=== PATIENT | female | born 1960 | race Caucasian/White ===

== ENCOUNTER 2021-11-05 22:23 | Observation (INO) | payer OTHER, SELFPAY ==
[2021-11-05 22:24] VITALS: BP 133/69; PULSE 90; RESP 17; RESP 22; TEMP 36.8; O2SAT 97; BMI 26.2
[2021-11-05 22:32] VITALS: O2SAT 99
--- NOTE | 2021-11-05 22:39 | EKG12_ITS ---
Test Reason : CP Blood Pressure : / mmHG Vent. Rate : 086 BPM Atrial Rate : 086 BPM P-R Int : 138 ms QRS Dur : 076 ms QT Int : 378 ms P-R-T Axes : 060 076 065 degrees QTc Int : 452 ms Normal sinus rhythm Normal ECG Confirmed by OUMOU RAMIREZ, LELIA ([id number]), copy editor JOSIE ARTHUR ([id number]) on 11/09/2021 11:22:48 AM Referred By: FELICITY Confirmed By:LELIA COELLO MD
--- NOTE | 2021-11-05 22:49 | RAD_ITS ---
INDICATION: chest pain EXAMINATION/TECHNIQUE: X-RAY - XR Chest 1 View COMPARISON: 03/26/2013. FINDINGS: The lungs are clear. The cardiomediastinal silhouette is unremarkable. No pleural effusion or pneumothorax. No acute osseous abnormalities. RAD/Chest 1 View (Portable) IMPRESSION: No acute radiographic abnormalities. Electronically Signed: Joseph Pike MD at 23:31 EDT ,
[2021-11-05 22:53] LABS: Absolute Lymphocyte Count 0.36 X10^3/uL (0.83-4.51); Absolute Neutrophil Count 6.4 X10^3/uL (2.0-7.7); Basophil# 0.02 X10^3/uL; Basophil% 0.3 % (0-1); Eosinophil# 0.05 X10^3/uL; Eosinophils% 0.7 % (0-5); Hemoglobin 13.5 g/dL (12.0-15.0); Lymphocyte # 0.36 X10^3/ul (0.83-4.51); Mean Corp Hgb Conc 31.4 g/dL (32-36); Mean Corpuscular Hgb 27.4 pg (27.0-32.0); Mean Corpuscular Volume 87.4 fL (81-99); Mean Platelet Vol. 9.2 fl (6.2-12.0); Monocyte# 0.36 X10^3/uL; NRBC Flagged by Analyzer 0 % (0-5); Neutrophil # 6.35 X10^3/uL (2.7-7.7); Neutrophil % 88.7 % (47-70); POSITIVE DIFFERENTIAL YES; Platelet Count 233 K/mm3 (150-450); RBC Distribution Width CV 13.1 % (11.6-14.6); RBC Distribution Width SD 41.6 fl (35.1-43.9); Red Blood Count 4.92 M/mm3 (4.2-5.4); White Blood Count 7.2 K/mm3 (4.4-11.0)
[2021-11-05 23:02] LABS: Differential Indicated SCAN CRITERIA MET
[2021-11-05 23:03] LABS: International Normalized Ratio 1.1; Prothrombin Time (Protime)PT. 13.1 SECONDS (11.7-14.9)
[2021-11-05] MEDS: Aspirin 81 MG TAB.CHEW 324 MG PO (23:03)
[2021-11-05 23:04] LABS: Partial Thromboplast Time 25.9 Seconds (24.1-36.2)
[2021-11-05] MEDS: Mag Hydrox/Al Hydrox/Simeth 30 ML UDC PO (23:06)
[2021-11-05] MEDS: 0.9% Normal Saline 1,000 ML 1000 ML IV (23:06)
[2021-11-05 23:15] LABS: ALB/GLOB Ratio 1.1 RATIO (0.9-2.4); AST(SGOT) 43 U/L (15-37); Alanine Aminotransfer ALT/SGPT 32 U/L (13-56); Albumin, Serum 3.6 g/dL (3.2-5.0); Alkaline Phosphatase 85 U/L (45-117); Anion Gap 4 (5-15); BUN 14 mg/dL (7-18); BUN/Creat Ratio 16.3 RATIO (10-20); Calcium,Total 8.9 mg/dL (8.5-10.1); Chloride 110 mmol/L (98-107); Creatinine, Serum 0.86 mg/dL (0.55-1.02); EST Glomerular Filtration Rate 71 mL/min (>60); Est Glom Filt Rate - Afr Amer 86 mL/min (>60); Estimated Creatinine Clearance 64.57 ml/min; Globulin 3.4 g/dL (2.2-4.2); Glucose 126 mg/dL (74-106); Lipase 114 U/L (73-393); Potassium 4.1 mmol/L (3.5-5.1); Sodium Level 141 mmol/L (136-145)
[2021-11-05] MEDS: Ondansetron 4 MG/2 ML Vial IV (23:15)
[2021-11-05 23:22] LABS: Differential Comment SCANNED
--- NOTE | 2021-11-05 23:39 | HP.PCM.HOS_ITS ---
HPI - General General Date of Service: 11/05/21 Chief Complaint: Near syncope, N/V/D, bradycardia. HPI Narrative The patient is a 61 y/o F w/ PMHx: Hx COVID-19 illness, GERD who presents to the [facility] ED on 11/05/21 with history of going out for the evening and having dinner with her son at approximately 530 to 6 PM downtown in [place] with eventual development at approximately 930 to 10 PM upset stomach without abdominal cramping or pain and severe nausea with onset of watery profuse diarrhea with no syncopal sensation and at that time diaphoresis, dizziness as well as significant lightheadedness with EMS evaluation and upon their arrival notable bradycardia with heart rate in the 30s with atropine administered with patient reporting and a repeat similar sensation while in the ambulance on route but no diarrhea at that time. Upon arrival patient feels fatigued and notes that she feels very cold. She notes that her son has felt well and has had no issues. They did share some of her dishes but not all of them. She does report recently being in [place] but she has no contacts from her trip who are also ill work-up in the ED included T 98.2, heart rate 90, BP 133/69, respiratory rate 17, 97% room air, CBC with WC 7.2, hemoglobin 13.5, platelet 233 with lymphopenia, unremarkable coags, CMP with glucose 126, AST/ALT 43/32, lipase 114, troponin less than 3, mag 2.0, EKG SR without acute evidence of acute ischemia, chest xray with no acute cardiopulmonary findings. In the ED patient ministered normal saline, Zofran, GI cocktail, aspirin 324 mg p.o. x1. [facility] Medical History (Updated 11/06/21 @ 00:[address] Jennifer Zarco MD) COVID-19 GERD (gastroesophageal reflux disease) Home Medications esomeprazole magnesium [Nexium] 40 mg PO DAILY 11/05/21 [History Last Taken Unknown] Allergy/AdvReac Type Severity Reaction Status Date / Time Penicillins Allergy Swelling Verified 11/05/21 22:29 Sulfa (Sulfonamide Allergy Swelling Verified 11/05/21 22:29 Antibiotics) Family History (Updated 11/06/21 @ 00:[address] Jennifer Zarco MD) Mother COPD (chronic obstructive pulmonary disease) Father COPD (chronic obstructive pulmonary disease) Heart disease Myocardial infarction Hypertension Brother Heart disease Myocardial infarction Hypertension Surgical History (Updated 11/06/21 @ 00:[address] Jennifer Zarco MD) H/O section History of shoulder surgery S/P cholecystectomy S/P partial hysterectomy Social History (Updated 11/06/21 @ 00:[address] Jennifer Zarco MD) household members: spouse Smoking Status: Never smoker Smokeless tobacco user: other alcohol intake: current alcohol intake frequency: holidays/special occasions only substance use type: does not use ROS ROS Narrative Admission Review of Systems: CONSTITUTIONAL: No weight loss, fever, + chills, weakness or fatigue. HEENT: Eyes: No visual loss, blurred vision, double vision or yellow sclerae. Ears, Nose, Throat: No hearing loss, sneezing, congestion, runny nose or sore throat. SKIN: No rash or itching, lesions, wounds. CARDIOVASCULAR: + Near syncopal event, bradycardia, no chest pain, chest pressure or chest discomfort, palpitations, edema, orthopnea, syncopal events. RESPIRATORY: No shortness of breath, cough or sputum, wheezing, hemoptysis. GASTROINTESTINAL: + Anorexia, nausea without vomiting, profuse diarrhea, No abdominal pain, melena, BRBPR. GENITOURINARY: No dysuria, frequency, urgency or retention. NEUROLOGICAL: + Near syncope, No headache, paralysis, ataxia, numbness or tingling in the extremities, focal weakness, change in bowel or bladder control, seizure. MUSCULOSKELETAL: No muscle, back pain, joint pain or stiffness. HEMATOLOGIC: No anemia, bleeding or bruising. LYMPHATICS: No enlarged nodes. No history of splenectomy. PSYCHIATRIC: No history of depression or anxiety. ENDOCRINOLOGIC: No reports of sweating, cold or heat intolerance. No polyuria or polydipsia. ALLERGIES: + potential rhinitis. Vital Signs Vital Signs Vital Signs: 11/05/21 22:24 11/05/21 22:32 11/05/21 23:00 Temperature 98.2 F Temperature Source Temporal Pulse Rate 90 Respiratory Rate 17 Respiratory Effort Short of Breath Blood Pressure 133/69 H Blood Pressure Mean 90 Pulse Ox 97 Oxygen Delivery Method Room Air Room Air Room Air Weight Weight: 129 lb 10.109 oz Body Mass Index (BMI) 26.2 Physical Exam Narrative Physical Examination: General: Awake, alert, oriented x 3 and cooperative, seated upright in the ED bed, fatigued appearing, shivering. Skin: Normal color, normal turgor, no icterus, no cyanosis. HEENT: AT/NC, EOMI, PERRLA, mildly dry MM, no carotid bruits or JVD noted. Lungs: CTA bilaterally, moderate effort, mild decrease BL bases, no rales, ronchi or wheezing. Heart: Currently regular rate and rhythm; no gallop, rub audible. Abdomen: Soft, NTTP, ND, hyperactive BS, no HSM. Extremities: No cyanosis, clubbing, or edema. Neurological: Patient awake, alert, oriented as noted, cognitive function intact; pupils equally reactive to light and accommodation, cranial nerves II- XII grossly normal, moving all 4 extremities, no focal deficits, strength mildly global decreased secondary to recent events Psychiatric: Affect appears fatigued, mildly anxious otherwise normal, no acute evidence of depressive feelings. Results Lab / Micro Data Result Diagrams: 11/05/21 22:45 11/05/21 22:45 Labs: Laboratory Results - last 24 hr 11/05/21 22:45: WBC 7.2, RBC 4.92, Hgb 13.5, Hct 43.0, MCV 87.4, MCH 27.4, MCHC 31.4 L, RDW Std Deviation 41.6, RDW Coeff of Crista 13.1, Plt Count 233, MPV 9.2, Immature Gran % (Auto) 0.300, Neut % (Auto) 88.7 H, Lymph % (Auto) 5.0 L, [place] % (Auto) 5.0, Eos % (Auto) 0.7, Baso % (Auto) 0.3, Absolute Neuts (auto) 6.4, Absolute Lymphs (auto) 0.36 L, Nucleated RBC % 0, Differential Comment SCANNED 11/05/21 22:45: Sodium 141, Potassium 4.1, Chloride 110 H, Carbon Dioxide 27.0, Anion Gap 4 L, BUN 14, Creatinine 0.86, Estim Creat Clear Calc 64.57, Est GFR (MDRD) Af Amer 86, Est GFR (MDRD) Non-Af 71, BUN/Creatinine Ratio 16.3, Glucose 126 H, Calcium 8.9, Magnesium 2.0, Total Bilirubin 0.40, AST 43 H, ALT 32, Alkaline Phosphatase 85, Total Protein 7.0, Albumin 3.6, Globulin 3.4, Albumin/Globulin Ratio 1.1, Lipase 114 11/05/21 22:45: PT 13.1, INR 1.1, APTT 25.9 Radiology Impression Chest X-Ray 11/05/21 22:49 IMPRESSION: No acute radiographic abnormalities. Electronically Signed: Joseph Pike MD at 23:31 EDT , Assessment & Plan Assessment/Plan (1) Bradycardia: (2) Gastroenteritis: (3) Near syncope: PLAN: The patient is a 61 y/o F w/ PMHx: Hx COVID-19 illness, GERD who presents to the [facility] ED on 11/05/21 with history of going out for the evening with eventual development at approximately 930 to 10 PM upset stomach without abdominal cramping or pain and severe nausea with onset of watery profuse diarrhea with no syncopal sensation with EMS evaluation w/ HR 30-40s with atropine administered. #1. Near Syncopal Event suspected secondary to potentially acute gastroenteritis with associated bradycardia potentially vasovagal associated: EKG in ED w/ sinus rhythm without evidence of acute ischemia, CXR w/ no acute cardiopulmonary findings, initial trop less than 3. Will admit to PCU, place on a monitored bed to assure no acute myocardial infarction with serial cardiac enzymes and EKGs. Will maintain on fall precautions, obtain admission orthostatic and AM orthostatic VS and increase hydration if appropriate. Will obtain ECHO. If any recurrent loose stools will send for culture and C. difficile. Respiratory viral panel requested. #2. GERD: We will continue patient on PPI. #3. DVT prophylaxis: SCDs, Lovenox. Charges/Coding Visit Charges OBSV E&M: 28784 Initial observation care L3
[2021-11-05 23:40] VITALS: BP 129/68; PULSE 97; RESP 17; TEMP 37.1; O2SAT 98
--- NOTE | 2021-11-05 23:40 | EDS_ITS ---
HPI History of Present Illness Chief Complaint: Shortness of Breath Informant: patient Onset/Context/Timing Onset: Today Quality: Feels funny Location: Epigastric pain Worsened by: Unsure Relieved by: Unsure Associated Symptoms Associated Symptoms: Sweats, pallor, near syncope, low heart rate for EMS, diarrhea Narrative Narrative: Patient arrives by EMS. She was having some epigastric pain earlier today and at the time she was having diarrhea, she was pale, sweaty, and felt like she was going to pass out. EMS was called. She had a similar episode in the ambulance. They found her heart rate to be low, 38 and she was treated with atropine. Her heart rate has since improved but she still feels funny and slightly short of breath. She denies any cardiac history. Any history of bradycardia. She is not on beta-blockers or anything for rate control. She has some epigastric pain but no chest pain. No history of DVT or PE. No fevers. No bleeding. [facility] Medical History Allergic rhinitis GERD (gastroesophageal reflux disease) Home Medications esomeprazole magnesium [Nexium] 40 mg PO DAILY 11/05/21 [History Last Taken Unknown] Allergy/AdvReac Type Severity Reaction Status Date / Time Penicillins Allergy Swelling Verified 11/05/21 22:29 Sulfa (Sulfonamide Allergy Swelling Verified 11/05/21 22:29 Antibiotics) Surgical History (Updated 11/05/21 @ 23:[address] Jennifer Zarco MD) H/O section History of shoulder surgery S/P cholecystectomy Social History (Updated 11/05/21 @ 23:[address] Jennifer Zarco MD) household members: spouse Smoking Status: Never smoker alcohol intake: never substance use type: does not use ROS ROS ED Constitutional Constitutional ED: Reports sweats; Denies fever(s) Eyes Eyes: Denies change in vision ENT ENT ED: Denies ear pain Cardiovascular Cardiovascular: Denies chest pain Respiratory/Chest Respiratory/Chest: Reports dyspnea Gastrointestinal Gastrointestinal: Reports abdominal pain, diarrhea, nausea and vomiting Genitourinary Genitourinary ED: Denies dysuria Musculoskeletal Musculoskeletal: Denies myalgias Integumentary Denies rash Neurologic Neurologic: Denies headache(s) Psychiatric Psychiatric: Denies depression Endocrine Endocrinology: Denies polyuria Allergic/Immunologic Allergic/Immunologic ED: Denies urticaria EXAM Physical Exam Const Vital Signs: 11/05/21 22:24 11/05/21 22:32 11/05/21 23:00 Temperature 98.2 F Temperature Source Temporal Pulse Rate 90 Respiratory Rate 17 Respiratory Effort Short of Breath Blood Pressure 133/69 H Blood Pressure Mean 90 Pulse Ox 97 Oxygen Delivery Method Room Air Room Air Room Air Positive well nourished and well developed General Appearance ED: well developed HEENT Negative for trauma Eyes EOMs intact bilaterally Neck supple Chest Wall inspection of chest normal Resp normal respiratory effort and clear to auscultation bilaterally Cardio regular rate and regular rhythm GI normal to inspection, nondistended, normoactive bowel sounds, non-tender and non-distended Palpation: soft Extremity normal to inspection General Extremety ED: Negative for edema or tenderness General Extremity: Negative for edema Neuro oriented x3 Sensorium / Orientation: alert Psych mental status grossly normal Skin no rashes or lesions noted MDM MDM MDM Narrative Medical decision making narrative: EKG shows sinus rhythm at a rate of 86. No sign of ischemia or infarction pattern. Normal intervals. This was interpreted by me. Patient was placed on the monitor. She had no further bradycardia or hypotension. She did have some continued symptoms. She was treated with Zofran. I reviewed her labs. They are fairly unremarkable. Still awaiting troponin at the time of this dictation. I suspect it will be normal. Will check. Chest x- ray was reviewed by the radiologist and myself. This showed no acute abnormalities. I agree with the interpretation. I suspect the patient had a vasovagal episode secondary to gastroenteritis or food poisoning, gastritis. She has had no further bradycardia. Her work-up so far has been reassuring. I believe she should be observed for near syncope and her symptoms. I contacted the hospitalist. Disposition is observation in PCU Impression #1 gastritis Impression #2 near syncope Impression #3 bradycardia Lab Data Attestation: I reviewed the patient's lab results. Labs: Laboratory Results - last 24 hr 11/05/21 11/05/21 11/05/21 22:45 22:45 22:45 WBC 7.2 RBC 4.92 Hgb 13.5 Hct 43.0 MCV 87.4 MCH 27.4 MCHC 31.4 L RDW Std Deviation 41.6 RDW Coeff of Crista 13.1 Plt Count 233 MPV 9.2 Immature Gran % (Auto) 0.300 Neut % (Auto) 88.7 H Lymph % (Auto) 5.0 L [place] % (Auto) 5.0 Eos % (Auto) 0.7 Baso % (Auto) 0.3 Absolute Neuts (auto) 6.4 Absolute Lymphs (auto) 0.36 L Nucleated RBC % 0 Differential Comment SCANNED PT 13.1 INR 1.1 APTT 25.9 Sodium 141 Potassium 4.1 Chloride 110 H Carbon Dioxide 27.0 Anion Gap 4 L BUN 14 Creatinine 0.86 Estim Creat Clear Calc 64.57 Est GFR (MDRD) Af Amer 86 Est GFR (MDRD) Non-Af 71 BUN/Creatinine Ratio 16.3 Glucose 126 H Calcium 8.9 Magnesium 2.0 Total Bilirubin 0.40 AST 43 H ALT 32 Alkaline Phosphatase 85 Total Protein 7.0 Albumin 3.6 Globulin 3.4 Albumin/Globulin Ratio 1.1 Lipase 114 Radiography Chest X-Ray - ED: Read by ED Physician and Read by Radiologist Diagnostic Testing: Clinical Impression(s) from Imaging Studies Chest X-Ray 11/05/21 22:49 IMPRESSION: No acute radiographic abnormalities. Electronically Signed: Joseph Pike MD at 23:31 EDT , Discharge Plan Triage Chief Complaint: Shortness of Breath ED Provider: Chino Torres Dx/Rx/DC Orders Prescriptions: No Action esomeprazole magnesium [Nexium] 40 mg Capsule,Delayed Release(Dr/Ec) 40 mg PO DAILY RF: 0 Primary Care Provider: Bhavesh De La Rosa
[2021-11-05 23:45] LABS: Troponin-I HS (w/2H Reflex) < 3 pg/mL (3.0-54.0)
[2021-11-06] VITALS (12 sets, daily range): BP systolic 108–141; BP diastolic 39–63; PULSE 83–104; RESP 16–18; TEMP 37–38.7; O2SAT 93–100; BMI 25.1
[2021-11-06 00:45] LABS: Procalcitonin < 0.04 ng/mL (0.00-0.09)
[2021-11-06 01:11] LABS: Reflex Troponin-HS? (from REC) Y
[2021-11-06] MEDS: 0.9% Normal Saline 1,000 ML 100 ML IV ×2 (01:20→09:35)
[2021-11-06] MEDS: 0.9% Saline Lock 10 ML Syringe IV ×2 (01:20→11:18)
[2021-11-06 01:48] LABS: Troponin-I HS < 3 pg/mL (3.0-54.0)
--- NOTE | 2021-11-06 05:55 | EKG12_ITS ---
Test Reason : AM EKG Blood Pressure : / mmHG Vent. Rate : 094 BPM Atrial Rate : 094 BPM P-R Int : 142 ms QRS Dur : 072 ms QT Int : 358 ms P-R-T Axes : 068 075 074 degrees QTc Int : 447 ms Normal sinus rhythm Normal ECG When compared with ECG of 09-APR-2008 07:39, MANUAL COMPARISON REQUIRED, DATA IS UNCONFIRMED Confirmed by EDELMIRA RAMIREZ, GENI ([id number]), metropolitan editor ETHAN CONNER ([id number]) on 11/11/2021 1:12:32 PM Referred By: Confirmed By:SHARI HICKEY MD
[2021-11-06] MEDS: Acetaminophen 325 MG Tablet 650 MG PO ×3 (05:56→20:17)
[2021-11-06] MEDS: Ondansetron 4 MG/2 ML Vial IV ×2 (05:58→20:16)
[2021-11-06 06:00] LABS: Absolute Lymphocyte Count 0.17 X10^3/uL (0.83-4.51); Absolute Neutrophil Count 7.7 X10^3/uL (2.0-7.7); Basophil# 0.02 X10^3/uL; Basophil% 0.2 % (0-1); Eosinophil# 0.02 X10^3/uL; Eosinophils% 0.2 % (0-5); Hematocrit 38.8 % (37-47); Hemoglobin 12.3 g/dL (12.0-15.0); Lymphocyte # 0.17 X10^3/ul (0.83-4.51); Lymphocyte % 2.1 % (19-41); Mean Corp Hgb Conc 31.7 g/dL (32-36); Mean Corpuscular Hgb 27.4 pg (27.0-32.0); Mean Corpuscular Volume 86.4 fL (81-99); Mean Platelet Vol. 9.3 fl (6.2-12.0); Monocyte# 0.22 X10^3/uL; Monocyte% 2.7 % (0-10); NRBC Flagged by Analyzer 0 % (0-5); Neutrophil # 7.74 X10^3/uL (2.7-7.7); Neutrophil % 94.6 % (47-70); POSITIVE DIFFERENTIAL YES; Platelet Count 227 K/mm3 (150-450); RBC Distribution Width CV 13.2 % (11.6-14.6); RBC Distribution Width SD 41.3 fl (35.1-43.9); Red Blood Count 4.49 M/mm3 (4.2-5.4); White Blood Count 8.2 K/mm3 (4.4-11.0)
[2021-11-06 06:10] LABS: Differential Indicated SCAN CRITERIA MET
[2021-11-06 06:25] LABS: AST(SGOT) 22 U/L (15-37); Alanine Aminotransfer ALT/SGPT 28 U/L (13-56); Albumin, Serum 3.1 g/dL (3.2-5.0); Alkaline Phosphatase 73 U/L (45-117); BUN 15 mg/dL (7-18); BUN/Creat Ratio 20.8 RATIO (10-20); Calcium,Total 7.7 mg/dL (8.5-10.1); Creatinine, Serum 0.72 mg/dL (0.55-1.02); EST Glomerular Filtration Rate 88 mL/min (>60); Est Glom Filt Rate - Afr Amer 106 mL/min (>60); Estimated Creatinine Clearance 74.11 ml/min; Glucose 111 mg/dL (74-106); Protein, Total 6.1 g/dL (6.4-8.2); Troponin-I HS 4 pg/mL (3.0-54.0)
[2021-11-06 06:26] LABS: Anion Gap 6 (5-15); Chloride 114 mmol/L (98-107); Potassium 3.9 mmol/L (3.5-5.1); Sodium Level 143 mmol/L (136-145)
[2021-11-06] MEDS: Mag Hydrox/Al Hydrox/Simeth 30 ML UDC PO (06:41)
[2021-11-06 06:42] LABS: Differential Comment SCANNED
[2021-11-06] MEDS: Pantoprazole Sodium 40 MG Tablet PO (09:16)
[2021-11-06] MEDS: Enoxaparin 40 MG/0.4 ML Syringe SC (09:16)
[2021-11-06] MEDS: Aspirin 81 MG TAB.CHEW PO (09:16)
[2021-11-06] MEDS: proCHLORPERazine 10 MG/2 ML Vial 5 MG IV (11:15)
--- NOTE | 2021-11-06 13:51 | CON.PCM.CA_ITS ---
Assessment & Plan Assessment/Plan (1) Gastroenteritis: (2) Near syncope: (3) Bradycardia: PLAN: 61-year-old female who had a past medical history of COVID-19 illness Also had a gastric reflux disease Patient seen and evaluated in the ER yesterday when she had episode of abdominal cramping and pain with severe nausea and had profuse watery diarrhea EMS was called and noted that her heart rate was as low requiring atropine with a range of heart rate 30 -40 bpm. This morning she is stable clinically she does not have any symptoms of dizziness or lightheadedness she still continued to have diarrhea. 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 Near syncopal episode likely related to episode of diarrhea abdominal pain with vasovagal episode 2. I reviewed the electronic device monitor she remains in sinus rhythm no evidence of high degree AV block. 3. From cardiac standpoint if she remains stable she can be discharged to follow-up with her primary electric truck crane operator HPI Consult Data Date of Consult: 11/06/21 HPI Narrative Reason for Consultation: Near syncopal event HPI Narrative: BLAYNE FOWLER, is a 61 F who presents [facility] Medical History (Updated 11/06/21 @ 00:[address] Jennifer Zarco MD) COVID-19 GERD (gastroesophageal reflux disease) Home Medications esomeprazole magnesium [Nexium] 20 mg PO DAILY 11/05/21 [History Last Taken 04/20] Allergy/AdvReac Type Severity Reaction Status Date / Time Penicillins Allergy Swelling Verified 11/05/21 22:29 Sulfa (Sulfonamide Allergy Swelling Verified 11/05/21 22:29 Antibiotics) Family History (Updated 11/06/21 @ 00:[address] Jennifer Zarco MD) Mother COPD (chronic obstructive pulmonary disease) Father COPD (chronic obstructive pulmonary disease) Heart disease Myocardial infarction Hypertension Brother Heart disease Myocardial infarction Hypertension Surgical History (Updated 11/06/21 @ 00:[address] Jennifer Zarco MD) H/O section History of shoulder surgery S/P cholecystectomy S/P partial hysterectomy Social History (Updated 11/06/21 @ 00:[address] Jennifer Zarco MD) household members: spouse Smoking Status: Never smoker Smokeless tobacco user: other alcohol intake: current alcohol intake frequency: holidays/special occasions only substance use type: does not use Physical Exam Narrative Patient seen and evaluated at bedside at bedside at time of evaluation Alert orientated x3 Not in acute distress Cardiovascular examination electronic device monitor showed normal sinus rhythm S1-S2 regular, no systolic or diastolic murmur, no pericardial rub Chest examination clear to auscultation bilateral. Risk Stratification Risk Stratification Applicable: No Objective Data Vital Signs: Vital Signs Temp Pulse Resp BP Pulse Ox 99.9 F H 98 18 108/39 L 94 11/06/21 09:04 11/06/21 09:04 11/06/21 09:04 11/06/21 09:04 11/06/21 09:04 Oxygen Delivery Method Room Air Weight: 124 lb 8.979 oz Body Mass Index (BMI) 25.1 Intake & Output: Intake and Output for Last 24 Hours 11/04/21 11/05/21 11/06/21 23:59 23:59 23:59 Intake Total 2365 / 2365 Output Total 500 / 500 Balance 1865 / 1865 Lab / Micro Data Result Diagrams: 11/06/21 05:10 11/06/21 05:10 Labs: Laboratory Results - last 24 hr 11/05/21 22:45: WBC 7.2, RBC 4.92, Hgb 13.5, Hct 43.0, MCV 87.4, MCH 27.4, MCHC 31.4 L, RDW Std Deviation 41.6, RDW Coeff of Crista 13.1, Plt Count 233, MPV 9.2, Immature Gran % (Auto) 0.300, Neut % (Auto) 88.7 H, Lymph % (Auto) 5.0 L, [place] % (Auto) 5.0, Eos % (Auto) 0.7, Baso % (Auto) 0.3, Absolute Neuts (auto) 6.4, Absolute Lymphs (auto) 0.36 L, Nucleated RBC % 0, Differential Comment SCANNED 11/05/21 22:45: Sodium 141, Potassium 4.1, Chloride 110 H, Carbon Dioxide 27.0, Anion Gap 4 L, BUN 14, Creatinine 0.86, Estim Creat Clear Calc 64.57, Est GFR (MDRD) Af Amer 86, Est GFR (MDRD) Non-Af 71, BUN/Creatinine Ratio 16.3, Glucose 126 H, Calcium 8.9, Magnesium 2.0, Total Bilirubin 0.40, AST 43 H, ALT 32, Alkaline Phosphatase 85, Total Protein 7.0, Albumin 3.6, Globulin 3.4, Albumin/Globulin Ratio 1.1, Lipase 114 11/05/21 22:45: PT 13.1, INR 1.1, APTT 25.9 11/05/21 22:45: Troponin I High Sens < 3 L 11/05/21 23:45: Procalcitonin < 0.04 11/06/21 01:15: Troponin I High Sens < 3 L 11/06/21 05:10: WBC 8.2, RBC 4.49, Hgb 12.3, Hct 38.8, MCV 86.4, MCH 27.4, MCHC 31.7 L, RDW Std Deviation 41.3, RDW Coeff of Crista 13.2, Plt Count 227, MPV 9.3, Immature Gran % (Auto) 0.200, Neut % (Auto) 94.6 H, Lymph % (Auto) 2.1 L, [place] % (Auto) 2.7, Eos % (Auto) 0.2, Baso % (Auto) 0.2, Absolute Neuts (auto) 7.7, Absolute Lymphs (auto) 0.17 L, Nucleated RBC % 0, Differential Comment SCANNED 11/06/21 05:10: Sodium 143, Potassium 3.9, Chloride 114 H, Carbon Dioxide 23.0, Anion Gap 6, BUN 15, Creatinine 0.72, Estim Creat Clear Calc 74.11, Est GFR (MDRD) Af Amer 106, Est GFR (MDRD) Non-Af 88, BUN/Creatinine Ratio 20.8 H, Glucose 111 H, Calcium 7.7 L, Total Bilirubin 0.40, AST 22, ALT 28, Alkaline Phosphatase 73, Troponin I High Sens 4, Total Protein 6.1 L, Albumin 3.1 L, Globulin 3.0, Albumin/Globulin Ratio 1.0 Micro: Microbiology 11/06/21 02:15 Mucosa - Nasopharyngeal Respiratory Panel (PCR) - Final Cardiology Labs/Tests 11/05/21 22:45: WBC 7.2, RBC 4.92, Hgb 13.5, Hct 43.0, MCV 87.4, MCH 27.4, MCHC 31.4 L, Plt Count 233, MPV 9.2, Immature Gran % (Auto) 0.300, Neut % (Auto) 88.7 H, Lymph % (Auto) 5.0 L, [place] % (Auto) 5.0, Eos % (Auto) 0.7, Baso % (Auto) 0.3, Absolute Neuts (auto) 6.4, Nucleated RBC % 0 11/05/21 22:45: Sodium 141, Potassium 4.1, Chloride 110 H, Carbon Dioxide 27.0, Anion Gap 4 L, BUN 14, Creatinine 0.86, Est GFR (MDRD) Af Amer 86, Est GFR (MDRD) Non-Af 71, BUN/Creatinine Ratio 16.3, Glucose 126 H, Calcium 8.9, Ma gnesium 2.0, Total Bilirubin 0.40 11/05/21 22:45: PT 13.1, INR 1.1, APTT 25.9 11/06/21 05:10: WBC 8.2, RBC 4.49, Hgb 12.3, Hct 38.8, MCV 86.4, MCH 27.4, MCHC 31.7 L, Plt Count 227, MPV 9.3, Immature Gran % (Auto) 0.200, Neut % (Auto) 94.6 H, Lymph % (Auto) 2.1 L, [place] % (Auto) 2.7, Eos % (Auto) 0.2, Baso % (Auto) 0.2, Absolute Neuts (auto) 7.7, Nucleated RBC % 0 11/06/21 05:10: Sodium 143, Potassium 3.9, Chloride 114 H, Carbon Dioxide 23.0, Anion Gap 6, BUN 15, Creatinine 0.72, Est GFR (MDRD) Af Amer 106, Est GFR (MDRD) Non-Af 88, BUN/Creatinine Ratio 20.8 H, Glucose 111 H, Calcium 7.7 L, Total Bilirubin 0.40 Rhythm: EKG: ECHO: Stress Test: Cardiac Cath: PCI: CT Surgery: Holter monitor: EPS: PPM: CXR: Chest CT Scan: Radiography Diagnostic Testing: Radiology Impression Chest X-Ray 11/05/21 22:49 IMPRESSION: No acute radiographic abnormalities. Electronically Signed: Joseph Pike MD at 23:31 EDT ,
--- NOTE | 2021-11-06 14:56 | PCM.PN.HOSP ---
Subjective Subjective Patient was seen and examined today, she is still not feeling well-she still has diarrhea and some nausea. There have been no episodes of bradycardia since she has been admitted to PCU, I do not feel she needs an echocardiogram performed, stool was positive for norovirus, I will increase the patient's IV fluids to 125 an hour, she will not be able to go home at this time until her symptoms improve. Objective Data Objective Data Vital Signs: Vital Signs Temp Pulse Resp BP Pulse Ox 101.6 F H 104 H 18 131/63 H 94 11/06/21 14:22 11/06/21 14:22 11/06/21 14:22 11/06/21 14:22 11/06/21 14:22 Oxygen Delivery Method Room Air Weight: 56.5 kg Body Mass Index (BMI) 25.1 Intake & Output: Intake and Output for Last 24 Hours 11/04/21 11/05/21 11/06/21 23:59 23:59 23:59 Intake Total 2365 / 2365 Output Total 500 / 500 Balance 1865 / 1865 Lab / Micro Data Result Diagrams: 11/06/21 05:10 11/06/21 05:10 Labs: Laboratory Results - last 24 hr 11/05/21 22:45: WBC 7.2, RBC 4.92, Hgb 13.5, Hct 43.0, MCV 87.4, MCH 27.4, MCHC 31.4 L, RDW Std Deviation 41.6, RDW Coeff of Crista 13.1, Plt Count 233, MPV 9.2, Immature Gran % (Auto) 0.300, Neut % (Auto) 88.7 H, Lymph % (Auto) 5.0 L, [place] % (Auto) 5.0, Eos % (Auto) 0.7, Baso % (Auto) 0.3, Absolute Neuts (auto) 6.4, Absolute Lymphs (auto) 0.36 L, Nucleated RBC % 0, Differential Comment SCANNED 11/05/21 22:45: Sodium 141, Potassium 4.1, Chloride 110 H, Carbon Dioxide 27.0, Anion Gap 4 L, BUN 14, Creatinine 0.86, Estim Creat Clear Calc 64.57, Est GFR (MDRD) Af Amer 86, Est GFR (MDRD) Non-Af 71, BUN/Creatinine Ratio 16.3, Glucose 126 H, Calcium 8.9, Magnesium 2.0, Total Bilirubin 0.40, AST 43 H, ALT 32, Alkaline Phosphatase 85, Total Protein 7.0, Albumin 3.6, Globulin 3.4, Albumin/Globulin Ratio 1.1, Lipase 114 11/05/21 22:45: PT 13.1, INR 1.1, APTT 25.9 11/05/21 22:45: Troponin I High Sens < 3 L 11/05/21 23:45: Procalcitonin < 0.04 11/06/21 01:15: Troponin I High Sens < 3 L 11/06/21 05:10: WBC 8.2, RBC 4.49, Hgb 12.3, Hct 38.8, MCV 86.4, MCH 27.4, MCHC 31.7 L, RDW Std Deviation 41.3, RDW Coeff of Crista 13.2, Plt Count 227, MPV 9.3, Immature Gran % (Auto) 0.200, Neut % (Auto) 94.6 H, Lymph % (Auto) 2.1 L, [place] % (Auto) 2.7, Eos % (Auto) 0.2, Baso % (Auto) 0.2, Absolute Neuts (auto) 7.7, Absolute Lymphs (auto) 0.17 L, Nucleated RBC % 0, Differential Comment SCANNED 11/06/21 05:10: Sodium 143, Potassium 3.9, Chloride 114 H, Carbon Dioxide 23.0, Anion Gap 6, BUN 15, Creatinine 0.72, Estim Creat Clear Calc 74.11, Est GFR (MDRD) Af Amer 106, Est GFR (MDRD) Non-Af 88, BUN/Creatinine Ratio 20.8 H, Glucose 111 H, Calcium 7.7 L, Total Bilirubin 0.40, AST 22, ALT 28, Alkaline Phosphatase 73, Troponin I High Sens 4, Total Protein 6.1 L, Albumin 3.1 L, Globulin 3.0, Albumin/Globulin Ratio 1.0 Micro: Microbiology 11/06/21 09:00 Stool Enteric Bacteriology - Final Norovirus 11/06/21 02:15 Mucosa - Nasopharyngeal Respiratory Panel (PCR) - Final Radiography Diagnostic Testing: Radiology Impression Chest X-Ray 11/05/21 22:49 IMPRESSION: No acute radiographic abnormalities. Electronically Signed: Joseph Pike MD at 23:31 EDT , Physical Exam Const alert, oriented x3, no apparent distress, average body habitus and healthy appearing General Appearance: cooperative, well kempt and well developed Orientation / Consciousness: awake, oriented to person, oriented to place and oriented to time HEENT normocephalic, head/scalp atraumatic and moist oral mucous membranes Head and Scalp: normocephalic Eyes PERRL, EOMs intact bilaterally and conjunctivae normal Neck nuchal rigidity, supple, no JVD, thyroid normal and no carotid bruits General: trachea midline Resp normal respiratory effort, no retractions, no use of accessory muscles and clear to auscultation bilaterally Auscultation: Negative for rales, rhonchi or wheezes Cardio regular rate, regular rhythm, S1 normal heart sound, S2 normal heart sound, no murmurs, no rub and no gallops GI normal to inspection, nondistended, normoactive bowel sounds, non-tender and non-distended Extremity no clubbing, cyanosis or edema Skin no rashes or lesions noted General Skin Exam: no breakdown Neuro oriented x3, CN's II-XII intact bilaterally, no focal motor deficits and no sensory deficits noted Sensorium / Orientation: awake and alert Speech: speech normal Psych affect normal Assessment & Plan Assessment/Plan (1) Bradycardia: PLAN: 1. Bradycardia-probably secondary to intractable diarrhea with vasovagal reaction-there have been no episodes of bradycardia since the patient has been admitted, again I do not feel the patient needs an echocardiogram at this time. #2 norovirus gastroenteritis-supportive care will be given to the patient, she is still having diarrhea. #3 GERD-patient is on Protonix Charges/Coding Visit Charges OBSV E&M: 42131 Subsequent observation care L2
[2021-11-06] MEDS: 0.9% Normal Saline 1,000 ML 125 ML IV (19:31)
[2021-11-07] VITALS (8 sets, daily range): BP systolic 119–141; BP diastolic 55–70; PULSE 77–88; RESP 16–18; TEMP 36.9–37.5; O2SAT 92–96
[2021-11-07] MEDS: 0.9% Normal Saline 1,000 ML 125 ML IV (02:38)
[2021-11-07] MEDS: Pantoprazole Sodium 40 MG Tablet PO (09:19)
--- NOTE | 2021-11-07 11:38 | PCM.DC ---
Discharge Instructions Diet Discharge Diet: No restrictions Activity Discharge Activity: Return to Normal Activity Weight Bearing Status: Full weight bearing Follow Up Care Test Results: Test results from this visit will be discussed in further detail at your follow-up appointment, if applicable. Discharge Plan Admission Admit Date/Time: 11/05/21 23:40 Primary Reason for Your Visit: gastroenteritis Attending Provider: German Richards Primary Care Provider: Bhavesh De La Rosa Consulting Providers: Colby Gorman Discharge Orders/Prescriptions Prescriptions: Continued esomeprazole magnesium [Nexium] 40 mg Capsule,Delayed Release(Dr/Ec) 20 mg PO DAILY RF: 0 Referrals / Follow Up: Bhavesh De La Rosa MD [Primary Care Provider] - See Referral Note (call the office to see when you need to be seen) Disposition Disposition (needs filled in before D/C Order can be placed): Home, Self Care
[2021-11-07] MEDS: Furosemide 40 MG Tablet PO (12:28)
--- NOTE | 2021-11-07 12:34 | NURSING ---
reviewed discharge instructions voiced understanding, discharged per wheelchair per escort in care of
--- NOTE | 2021-11-07 18:30 | PCM.DC.SUM ---
Providers Date of Admission: 11/05/21 Date of Discharge: 11/07/21 Primary Care Physician: Dr. Bhavesh De La Rosa MD Consultations 11/06/21 00:31 Consult: Cardiology Routine Consulting Provider: Colby Gorman Reason for Consult: Near syncope, bradycardia requiring atropine, suspect vasovagal w/ poss GI EMERGENT Consult: No MD Notified: Yes Date Notified: 11/06/21 Time Notified: 00:17 Method of Notification: cortext Reason For Visit: N/V/D, NEAR SYNCOPE, BRADYCARDIA Diagnosis Discharge Diagnosis (1) Bradycardia: Status: Acute Code(s): R00.1 - Bradycardia, unspecified Plan: 1. Vasovagal bradycardia mediated by diarrhea from norovirus gastroenteritis #2 norovirus gastroenteritis-acute #3 near syncope secondary to #1 #4 GERD Medications at Discharge Home Medications esomeprazole magnesium [Nexium] 20 mg PO DAILY 11/05/21 Hospital Course Operations None Procedures None Summary of Care Provided Minutes Spent on Discharge: 30 Hospital Course: This 61-year-old white female was seen in the emergency room at [facility] after being brought in by squad due to an episode of near syncope at home, patient became very diaphoretic after having diarrhea at home and squad was called to evaluate the patient, patient's pulse rate was noted to be in the 30s briefly, she was given atropine by squad, patient was then brought to the emergency room for evaluation, she stated she did not feel back to normal. Labs obtained in the emergency room showed a normal CBC, patient's chemistry panel was unremarkable. Patient's EKG showed a normal sinus rhythm without evidence of ischemia. Patient was placed in observation status on PCU, stool was checked for enteric pathogens and C. difficile, her stool came back positive for norovirus. Patient continued to have diarrhea but with Imodium and Bentyl her diarrhea improved. Patient was seen briefly in consultation by cardiology who did not feel she warranted any cardiac work-up. On 11/07/2021, patient was seen and examined: On examination she appeared in good health and spirits, she does not appear to be in any distress. Vital signs as documented. Skin warm and dry and without overt rashes. Neck without JVD, thyroid appears normal, trachea is midline, neck is supple. Lungs clear, normal air movement was noted. Heart exam notable for regular rhythm, normal sounds and absence of murmurs, rubs or gallops. Abdomen unremarkable and without evidence of organomegaly, masses, or abdominal aortic enlargement, bowel sounds are present in all 4 quadrants, no abdominal tenderness was noted. Extremities nonedematous, no cyanosis was noted, no clubbing was noted. Neuro: Cranial nerves II through XII are grossly intact, no focal motor deficits were noted, sensation to light touch and pinprick is intact, motor exam 5/5 throughout. Psych: Patient is alert and oriented x3, she does not appear anxious or depressed, she does not appear agitated. Patient appears stable for discharge on 11/07/2021. Weight / BMI Weight Weight: 56.5 kg Body Mass Index (BMI) 25.1 ABG / Lab / Microbiology Data Result Diagrams: 11/06/21 05:10 11/06/21 05:10 Microbiology: Microbiology 11/06/21 09:00 Stool Enteric Bacteriology - Final Norovirus 11/06/21 09:00 Stool C. difficile DNA Amplification - Final 11/06/21 02:15 Mucosa - Nasopharyngeal Respiratory Panel (PCR) - Final D/C Instructions Discharge Diet: No restrictions Weight Bearing Status: Full weight bearing Meaningful Use Info Meaningful Use Diagnoses (Choose all that apply): None applicable Discharge Plan Admission Admit Date/Time: 11/05/21 23:40 Primary Reason for Your Visit: gastroenteritis Attending Provider: German Richards Primary Care Provider: Bhavesh De La Rosa Consulting Providers: Colby Gorman Discharge Orders/Prescriptions Prescriptions: Continued esomeprazole magnesium [Nexium] 40 mg Capsule,Delayed Release(Dr/Ec) 20 mg PO DAILY RF: 0 Referrals / Follow Up: Bhavesh De La Rosa MD [Primary Care Provider] - See Referral Note (call the office to see when you need to be seen) Disposition Disposition (needs filled in before D/C Order can be placed): Home, Self Care Charges/Coding Visit Charges OBSV E&M: 44471 Observation care discharge
== END 2021-11-07 11:43 | disposition home or self-care (01) ==
LOC: ED 22:51 → PCU 11-06 00:12
PROVIDERS: Admitting Provider Family Medicine; Emergency Provider Emergency Medicine; PCP Family Medicine; Visit Provider Internal Medicine
DX: A08.11 Acute gastroenteropathy due to Norwalk agent (principal); R06.02 Shortness of breath; R55 Syncope and collapse; K21.9 Gastro-esophageal reflux disease without esophagitis; R00.1 Bradycardia, unspecified; Z86.16 Personal history of COVID-19
CPT/HCPCS: 36415; 71045; 80053; 83690; 83735; 84145; 84484; 85025; 85610; 85730; 87040; 87493; 87506; 87633; 93005; 96361; 96372; 96374; 96375; 96376; 99218; 99285; J7030; A4216; G0378; J2405